=== PATIENT | female | born 1985 | race Caucasian/White ===

== ENCOUNTER → 2017-07-21 | Outpatient (CLI) | payer OTHER ==
--- NOTE | ~2017-07-21 | 2DMMODE ---
[facility] [address] [place] [address] 2 D/M-MODE ECHOCARDIOGRAM Name: MATHIEUELIZABETH ROSA Room #: REG [facility]#: [id number] Admission: 07/21/17 Attend Phys: Rodri Mccloud Discharge: Date of : 81 Date of Service: 07/21/17 1027 Report #: [id number] THIS REPORT FOR: //name// APPROVED REPORT Study performed: 07/21/2017 09:05:32 EXAM: Comprehensive 2D, Doppler, and color-flow Echocardiogram Patient Location: Out-Patient Status: routine BSA: 1.78 HR: 53 bpm BP: 125/69 mmHg Rhythm: NSR Other Information Study Quality: Adequate Indications SVT 2D Dimensions RVDd: 36.86 mm LVEF(%): 70.00 (>50%) IVSd: 7.87 (7-11mm) LVOT Diam: 20.11 (18-24mm) LVDd: 49.26 mm PWd: 8.77 (7-11mm) Ascending Ao: 26.24 (22-36mm) LVDs: 29.74 (25-40mm) Aortic Root: 25.38 mm [place]'s LVEF: 70.00 % Volumes Left Atrial Volume (Systole) Single Plane 4CH: 51.64 mL Single Plane 2CH: 45.28 mL LA ESV Index: 31.00 mL/m2 Aortic Valve AoV Peak Thaddeus.: 1.28 m/s AO Peak Gr.: 6.57 mmHg LVOT Max P.19 mmHg LVOT Max V: 1.02 m/s EMILY Vmax: 2.54 cm2 Mitral Valve E/A Ratio: 2.3 MV Decel. Time: 236.88 ms [facility] [place] [address] 2 D/M-MODE ECHOCARDIOGRAM Name: ELIZABETH HARRISON Room #: [facility]#: [id number] Admission: 07/21/17 Attend Phys: Rodri Mccloud Discharge: Date of : 81 Date of Service: 07/21/17 1027 Report #: [id number] MV E Max Thaddeus.: 0.96 m/s MV A Thaddeus.: 0.42 m/s MV PHT: 68.70 ms IVRT: 69.20 ms Pulmonary Valve PV Peak Thaddeus.: 1.03 m/s PV Peak Gr.: 4.20 mmHg Pulmonary Vein P Vein S: 0.39 m/s P Vein D: 0.52 m/s P Vein S/D Ratio: 0.75 Tricuspid Valve TR Peak Thaddeus.: 2.31 m/s RAP Estimate: 5.00 mmHg TR Peak Gr.: 21.32 mmHg PA Pressure: 26.00 mmHg Left Ventricle The left ventricle is normal size. There is normal LV segmental wall motion. There is normal left ventricular wall thickness. Left ventricular systolic function is normal. LVEF is 55-60%. The left ventricular diastolic function is normal. Right Ventricle The right ventricle is normal size. The right ventricular systolic function is normal. Atria The left atrium size is normal. The right atrium size is normal. Aortic Valve The aortic valve is normal in structure. No aortic regurgitation is present. There is no aortic valvular stenosis. Mitral Valve The mitral valve is normal in structure. Mild mitral regurgitation. No evidence of mitral valve stenosis. Tricuspid Valve The tricuspid valve is normal in structure. Trace to mild tricuspid regurgitation. Estimated PAP is 25-30mmHg. Pulmonic Valve The pulmonary valve is normal in structure. Mild pulmonic [address] [address] 2 D/M-MODE ECHOCARDIOGRAM Name: ELIZABETH HARRISON Room #: REG [facility]#: [id number] Admission: 07/21/17 Attend Phys: Rodri Mccloud Discharge: Date of : 81 Date of Service: 07/21/17 1027 Report #: [id number] regurgitation. Great Vessels The aortic root is normal in size. The ascending aorta is normal in size. IVC is normal in size and collapses >50% with inspiration. Pericardium There is no pericardial effusion. <Conclusion> The left ventricle is normal size. LVEF is 55-60%. The aortic valve is normal in structure. The mitral valve is normal in structure. Mild mitral regurgitation. The tricuspid valve is normal in structure. Trace to mild tricuspid regurgitation. Estimated PAP is 25-30mmHg. The pulmonary valve is normal in structure. Mild pulmonic regurgitation. There is no pericardial effusion. <ELECTRONICALLY SIGNED> By: Parrish Armendariz MD 07/21/17 1027 1027 1027 Parrish Armendariz MD /INF
== END ==
LOC: CV 06:57
DX: I47.1 Supraventricular tachycardia (principal); I34.0 Nonrheumatic mitral (valve) insufficiency; I37.1 Nonrheumatic pulmonary valve insufficiency